=== PATIENT | female | born 1970 | race Caucasian/White ===

== ENCOUNTER 2017-10-01 14:10 | Inpatient (IN) | payer OTHER ==
[2017-10-01 15:38] LABS: ABS Basophils 0.1 10^3/ul (0-0.2); ABS Eosinophils 0.1 10^3/ul (0-0.6); ABS Lymphocytes 0.9 10^3/ul (1.0-4.8); ABS Monocytes 0.7 10^3/ul (0-0.8); ABS Neutrophils 7.5 10^3/ul (1.5-7.7); ABS Nucleated RBC 0 10^3/ul; Eosinophil % 0.8 % (0-6); Hematocrit 41 % (35-47); Hemoglobin 14.1 g/dl (12.0-16.0); Lymphocyte % 9.6 % (25-47); Mean Corpuscular HGB Conc 34 g/dl (31-36); Mean Corpuscular Hemoglobin 31 pg (27-31); Mean Corpuscular Volume 90 fL (80-97); Nucleated Red Blood Cells % 0; Platelet Count 353 10^3/ul (150-450); Red Cell Distribution Width 14 % (10.5-15); White Blood Count 9.2 10^3/ul (3.5-10.8)
[2017-10-01 15:57] LABS: EGFR Non-African American 53.2 (>60)
[2017-10-01] MEDS ORDERED: NS 0.9% 1000 ML* 1,000 ML IV ONE (16:24)
[2017-10-01] MEDS ORDERED: Lidocaine 2% VISCOUS* 15 ML UDC PO ONE (16:24)
[2017-10-01 16:34] LABS: Urine Appearance Cloudy; Urine Blood Negative (Negative); Urine Color Amber; Urine Ketones 2+ (Negative); Urine Protein 2+(100 mg/dL) (Negative); Urine Specific Gravity 1.034 (1.010-1.030); Urine Urobilinogen Positive (Negative)
[2017-10-01] MEDS: Potassium Chloride LIQUID* 20 MEQ PACKET PO ONE ×2 (16:36→17:37)
[2017-10-01] MEDS ORDERED: Magnesium Hydroxide LIQ* 30 ML UDC PO PRN (17:41)
[2017-10-01] MEDS ORDERED: Albuterol 2.5 MG/3 ML NEB.SOL* (0.083%) INH PRN (17:41)
[2017-10-01] MEDS ORDERED: Acetaminophen TAB* 325 MG PO PRN (17:41)
[2017-10-01] MEDS ORDERED: Al Hydrox/Mg Hydrox/Simet LIQ* 30 ML UDC PO PRN (17:41)
[2017-10-01] MEDS ORDERED: NS 0.9% 1000 ML* 1,000 ML IV SCH (17:45)
[2017-10-01] MEDS ORDERED: Lidocaine 2% VISCOUS* 15 ML UDC SWISH SPIT PRN (17:48)
[2017-10-01] MEDS ORDERED: KCL 10 MEQ/50 ML IVPREMIX* 10 MEQ/50 ML BAG ONE (18:34)
[2017-10-01] MEDS: KCL 10 MEQ/50 ML IVPREMIX* 10 MEQ/50 ML BAG IV SCH ×2 (18:38→20:40)
--- NOTE | 2017-10-01 19:22 | HP ---
CC: Dr. Lopez * ADMISSION HISTORY AND PHYSICAL: DATE OF ADMISSION: 10/01/17 PATIENT OF: Hi Mccallum MD * (DICTATED BY REHANA TRENT) PRIMARY DOUGH RAISER: James Lopez MD CHIEF COMPLAINT: 1. Vomiting. 2. History of esophagitis. HISTORY OF PRESENT ILLNESS: Ms. Edwards is a 47-year-old female who carries past medical history significant for multiple sclerosis as well as history of dysphagia and esophagitis in the past who presents to the emergency room today with complaints of increased nausea, vomiting and unable to keep any food down for the past week or so. The patient was evaluated by Dr. Lopez back on 09/22 where she had an EGD revealing esophagitis as well as no evidence of healing ulcers in her upper GI tract. She denies any coffee-ground emesis or raudel bleeding. She does not have any family history of esophageal cancer. She denies any associated abdominal pain or chest pain. She has lost approximately 25 to 30 pounds since the episode because she in general cannot tolerate any food intake. She was also noted to have candidiasis in the esophagus for which she has been on fluconazole for yeast infection. She reports that for the past couple of days she could not even tolerate any fluid down and she keeps vomiting. She denies any fever, chills, or any other associated symptoms. She felt dehydrated and weak for which she came to the emergency room for further evaluation. She had laboratory workup that revealed significant hypokalemia likely secondary to multiple episodes of emesis. Emergency room providers had contacted Dr. Loaiza who is covering for GI practice today, who will come to see the patient tomorrow for a consultation. Given her ongoing symptoms, evidence of dehydration and inability to control her vomiting and cannot keep any food down, we were asked to see the patient for further evaluation and to consider admission for IV fluid hydration awaiting GI consult. PAST MEDICAL HISTORY: Significant for multiple sclerosis, hypertension, and hypothyroidism. PAST SURGICAL HISTORY: None. CURRENT MEDICATIONS: Her medications at home include: 1. Tecfidera 240 mg p.o. daily. 2. Plaquenil 400 mg p.o. q.h.s. 3. Synthroid 75 mcg p.o. daily. 4. Lidocaine viscous solution 15 mL swish and swallow every 12 hours as needed for heartburn. 5. Lisinopril/hydrochlorothiazide 20/25 mg 1 tablet p.o. daily. 6. Multivitamin 1 tablet p.o. daily. 7. Omeprazole 40 mg p.o. daily. 8. Zofran 4 mg p.o. q.8 hours as needed for nausea. 9. Carafate 10 mL p.o. q.a.c. and q.h.s., for which the patient has been on for a week since her last EGD; however, she is not on it at this time. ALLERGIES: She is allergic to PENICILLINS. FAMILY HISTORY: Significant for hypertension. Denies any family history of esophageal cancer or gastric carcinoma. SOCIAL HISTORY: The patient is a nonsmoker who drinks alcohol rarely. 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 She is and her _ the healthcare proxy. REVIEW OF SYSTEMS: See HPI. Otherwise, 14-point review of systems were discussed and were otherwise negative. PHYSICAL EXAMINATION GENERAL: She is a pleasant, morbidly-obese, middle-aged female in no acute distress or discomfort at the time of admission. VITAL SIGNS: Reveal temperature of 97.8, pulse of 65, respirations of 20, O2 sat of 99% on room air, and blood pressure of 131/86. HEENT: Head is normocephalic, atraumatic. Sclerae anicteric. PERRLA. EOMs intact. Oropharynx is pink and dry. NECK: Supple. Trachea midline. No cervical adenopathy or thyromegaly. LUNGS: Clear to auscultation bilaterally. HEART: Regular rate and rhythm. Normal S1 and S2 without rubs, murmurs, or gallops. BACK: With normal curvature and no CVA tenderness. BREASTS: Exam deferred at this time. ABDOMEN: Round, soft, and obese, nontender and nondistended. There are no hernias, masses, or hepatosplenomegaly. There is no guarding, rigidity, or rebound tenderness. EXTREMITIES: Without cyanosis, clubbing, or edema. NEUROLOGIC: She is awake, alert, and oriented x4. Neurologic exam was grossly normal. RECTAL: Exam deferred at this time. LABORATORY WORKUP: Her CBC today with white count of 9000, hemoglobin 14.1, hematocrit of 41, and platelets of 353,000. Chemistry with sodium of 143, potassium 2.8 that is being corrected with 40 mEq in the ED as well as I added two 10 mEq IV runs and we will recheck labs in the morning, chloride is 99, BUN 13, creatinine 1.1. LFTs within normal limits. Lactic acid 1.2. C-reactive protein is 53. ACCESSORY DIAGNOSTIC DATA: ECG done earlier today with no evidence of ST changes noted. IMPRESSION: A 47-year-old female with past medical history significant for multiple sclerosis, hypertension and hypothyroidism, as well as evidence of esophagitis on 2 separate EGDs back in July and most recently 10 days ago, who presents with persistent nausea, vomiting and inability to keep any p.o. intake with signs and symptoms consistent with dehydration. ASSESSMENT AND PLAN: 1. Esophagitis. The patient will be admitted to the medical floor for IV hydration. I will keep her on clear liquid diet for the time being and will reassess in the morning. Dr. Loaiza was contacted by the emergency room staff and he will see the patient for GI consultation in the morning. She appears to be comfortable at this time and we will continue her on clear liquid diet as tolerated. I will also continue her PPI coverage and resume Carafate 4 times daily. She does not have any evidence of coffee-ground emesis or upper GI bleed and appears to be hemodynamically stable. 2. Hypertension. I will continue her lisinopril/hydrochlorothiazide. 3. Hypothyroidism. We will continue her levothyroxine. 4. History of multiple sclerosis. We will continue her medications at home. 5. Hypokalemia. The patient received p.o. and IV run supplementation and we will recheck her electrolytes in the morning. I suspect this is likely secondary to multiple episodes of emesis leading to her electrolyte imbalance. 6. DVT prophylaxis: She is at moderate risk and will use sequential stocking device for the time being. 7. Code status: She is a full code. 8. Disposition: Admit to medical floor for IV hydration, symptomatic management of intractable vomiting and await GI consultation and recommendation. TIME SPENT: Approximately 60 minutes were spent admitting this patient with greater than 50% taking history and performing physical exam. REHANA TRENT [id number]/[facility] #: [id number] GITA
[2017-10-01] MEDS: Sucralfate SUSP 1 GM/10 ml 10 ML UDC PO SCH (20:48)
[2017-10-01] MEDS: Hydroxychloroquine TAB* 200 MG PO SCH (22:43)
[2017-10-02] MEDS: Ondansetron INJ* 2 MG/ML VIAL IV PRN ×2 (03:54→21:00)
[2017-10-02 05:54] LABS: ABS Basophils 0.1 10^3/ul (0-0.2); ABS Eosinophils 0.1 10^3/ul (0-0.6); ABS Lymphocytes 0.7 10^3/ul (1.0-4.8); ABS Monocytes 0.6 10^3/ul (0-0.8); ABS Neutrophils 5.5 10^3/ul (1.5-7.7); ABS Nucleated RBC 0 10^3/ul; Eosinophil % 1.2 % (0-6); Hematocrit 37 % (35-47); Hemoglobin 12.6 g/dl (12.0-16.0); Lymphocyte % 10.4 % (25-47); Mean Corpuscular HGB Conc 34 g/dl (31-36); Mean Corpuscular Hemoglobin 31 pg (27-31); Mean Corpuscular Volume 90 fL (80-97); Mean Platelet Volume 8.8 um3 (7.4-10.4); Nucleated Red Blood Cells % 0; Platelet Count 264 10^3/ul (150-450); Red Blood Count 4.08 10^6/ul (4.00-5.40); Red Cell Distribution Width 15 % (10.5-15); White Blood Count 6.9 10^3/ul (3.5-10.8)
[2017-10-02] MEDS: Sucralfate SUSP 1 GM/10 ml 10 ML UDC PO SCH ×4 (06:08→21:00)
[2017-10-02] MEDS: PROCHLORPERAZINE INJ 5 MG/ML 2 ML VIAL IV PRN ×2 (06:09→23:41)
[2017-10-02] MEDS: Levothyroxine TAB* 75 MCG TAB PO SCH (06:09)
[2017-10-02 06:13] LABS: EGFR Non-African American 67.1 (>60)
--- NOTE | 2017-10-02 07:06 | PN ---
Progress Note - Progress Note Date of Service: 10/02/17 Note: Cross cover note: Called regarding low potassium Vomiting continues 3 runs of 20meq potassium chloride IV ordered
[2017-10-02] MEDS ORDERED: Omeprazole CAP* 20 MG PO SCH (07:30)
[2017-10-02] MEDS: KCL 20 MEQ/100 ML IVPREMIX* 20 MEQ/100 ML BAG IV SCH ×3 (08:13→12:38)
[2017-10-02] MEDS: Lisinopril TAB* 10 MG PO SCH (08:14)
[2017-10-02] MEDS: Potassium Chloride LIQUID* 20 MEQ PACKET PO SCH (08:14)
[2017-10-02] MEDS: Hydrochlorothiazide TAB* 25 MG PO SCH (08:14)
[2017-10-02] MEDS ORDERED: DIMETHYL FUMARATE 240 MG PO SCH (09:00)
[2017-10-02] MEDS ORDERED: NS 0.9% 1000 ML* 1,000 ML IV SCH (10:30)
[2017-10-02] MEDS ORDERED: Fluconazole 100 MG TAB* TAB PO SCH (11:00)
[2017-10-02] MEDS: Pantoprazole IV* 40 MG IV SCH (11:51)
--- NOTE | 2017-10-02 16:30 | PN ---
Subjective Date of Service: 10/02/17 Interval History: Able to tolerate small amount of jello but not much else No pain without swallowing No nausea without eating No other complaints Objective Active Medications: Acetaminophen (Tylenol Tab*) 650 mg PO Q4H PRN PRN Reason: FEVER/PAIN Al Hydrox/Mg Hydrox/Simethicone (Maalox Plus*) 30 ml PO Q6H PRN PRN Reason: INDIGESTION Albuterol (Ventolin 2.5 Mg/3 Ml Neb.Marie*) 2.5 mg INH [id number] AWAKE PRN PRN Reason: sob/wheezing Dimethyl Fumarate (Tecfidera(Nf)) 240 mg PO DAILY [facility] Last Admin: 10/02/17 08:14 Dose: 240 mg Hydrochlorothiazide (Hydrodiuril Tab*) 25 mg PO DAILY [facility] Last Admin: 10/02/17 08:14 Dose: 25 mg Hydroxychloroquine Sulfate (Plaquenil Tab*) 400 mg PO BEDTIME [facility] Last Admin: 10/01/17 22:43 Dose: Not Given Fluconazole/Sodium Chloride (Diflucan 200 Mg Ivpremix(*)) 200 mg in 100 mls @ 100 mls/hr IVPB Q24H [facility] Lactated Ringer's (Lactated Ringers 1000 Ml Bag*) 1,000 mls @ 125 mls/hr IV PER RATE [facility] Stop: 10/03/17 18:59 Last Admin: 10/02/17 11:51 Dose: 125 mls/hr Famotidine 20 mg/ Sodium (Chloride) 102 mls @ 408 mls/hr IVPB BID [facility] Levothyroxine Sodium (Synthroid Tab*) 75 mcg PO QAM@0600 [facility] Last Admin: 10/02/17 06:09 Dose: 75 mcg Lidocaine (Xylocaine 2% Viscous*) 15 ml SWISH SPIT Q12HR PRN PRN Reason: PER PROTOCOL Lisinopril (Prinivil Tab*) 20 mg PO DAILY [facility] Last Admin: 10/02/17 08:14 Dose: 20 mg Magnesium Hydroxide (Milk Of Magnesia Liq*) 30 ml PO Q4H PRN PRN Reason: CONSTIPATION Ondansetron HCl (Zofran Inj*) 4 mg IV Q6H PRN PRN Reason: NAUSEA/VOMITING Last Admin: 10/02/17 03:54 Dose: 4 mg Pantoprazole Sodium (Protonix Iv*) 40 mg IV Q24H [facility] Last Admin: 10/02/17 11:51 Dose: 40 mg Potassium Chloride (Klor-Con Liquid*) 20 meq PO DAILY [facility] Last Admin: 10/02/17 08:14 Dose: 20 meq Prochlorperazine Edisylate (Compazine Inj*) 10 mg IV Q6H PRN PRN Reason: NAUSEA/VOMITING Last Admin: 10/02/17 06:09 Dose: 10 units Sucralfate (Sucralfate Susp) 1 gm PO ACHS [facility] Last Admin: 10/02/17 14:46 Dose: Not Given Vital Signs - 8 hr 10/02/17 11:17 Temperature 97.4 F Pulse Rate 62 Respiratory 19 Rate Blood Pressure 141/75 (mmHg) O2 Sat by Pulse 100 Oximetry Oxygen Devices in Use Now: None Appearance: NAD Eyes: No Scleral Icterus, PERRLA Ears/Nose/Mouth/Throat: NL Teeth, Lips, Gums, Clear Oropharnyx Neck: NL Appearance and Movements; NL JVP, Trachea Midline Respiratory: Symmetrical Chest Expansion and Respiratory Effort, Clear to Auscultation Cardiovascular: NL Sounds; No Murmurs; No JVD, RRR Abdominal: NL Sounds; No Tenderness; No Distention Lymphatic: No Cervical Adenopathy Extremities: No Edema Skin: No Rash or Ulcers Neurological: Alert and Oriented x 3 Result Diagrams: 10/02/17 05:39 10/02/17 05:39 Assess/Plan/Problems-Billing Assessment: 47 yo F pw persistent N/V and refractory erosive esophagitis - Patient Problems (1) Erosive esophagitis Comment: No change on EGD from July to 09/22 Protonix IV Add pepcid IV carafate and viscous lidocaine if tolerated GI consult for further guidance (2) Esophageal candidiasis Comment: positive from culture obtained during 09/22 EGD fluconazole IV (3) Hypokalemia Comment: In setting of N/V IV KCl Lactated ringers Check in AM (4) Multiple sclerosis Comment: tecfidera (5) Hypertension Comment: lisinopril, HCTZ (6) Hypothyroidism Comment: synthroid switch to IV if unable to tolerate in AM (7) DVT prophylaxis Comment: enoxaparin
[2017-10-02] MEDS: Enoxaparin(*) 40 MG/0.4 ML SYR SUBCUT SCH (17:02)
[2017-10-02] MEDS ORDERED: Famotidine IV * 20 MG in NS 0.9% 100 ML* 100 ML IVPB SCH (21:00)
[2017-10-02] MEDS: Hydroxychloroquine TAB* 200 MG PO SCH (21:00)
[2017-10-02] MEDS: Famotidine IV* 10 MG/ML 2 ML (20 mg) IV SCH (21:00)
--- NOTE | 2017-10-02 21:34 | CONS ---
GASTROENTEROLOGY CONSULT: DATE: 10/02/17 CONSULTING PHYSICIAN: Denilson Branch REASON FOR CONSULTATION: Dysphagia progressing with frequent nausea and vomiting and hypokalemia to 2.8 in a woman being treated for erosive esophagitis with narrowing HISTORY OF PRESENT ILLNESS: This 47-year-old woman who works from home in [employer] has never had GI problems prior to this year. She began having trouble with intermittent dysphagia predominantly for solids sometime in late May or early June. She had a barium swallow, 06/27/17, showing some spasm and narrowing of the distal esophagus. Reflux was noted despite narrowing. She was referred for GI consult to Dr Lopez, who did an upper endoscopy, 08/04, that showed severe erosive esophagitis in the distal esophagus with nodularity, swelling and edema. Large ulcers were seen so no dilation done. Biopsies were taken and these showed nonspecific inflammation. There was a small hiatal hernia. The stomach was unremarkable including in retroflexion. The distal stomach and duodenum were normal. She was started on omeprazole 40 mg b.i.d. an increased dose from what Dr Anderson had started Her symptoms, however, got worse in the few weeks prior to repeat endoscopy on 09/22/17. There was a lot of white exudate in the esophagus and the distal esophagus was very narrowed, actually worse than the prior exam. The adult scope would not go through, so pediatric scope was chosen and did go through the EG junction though there was some blood oozing. There was nodular tissue in the gastric cardia. Biopsies were nonspecific. She was placed on antifungal treatment in addition to the PPI. At that time, she was complaining of more pain in the lower substernal area. She was asked to put her omeprazole into applesauce. In the emergency room yesterday, the complaint was of inability to eat, frequent vomiting and weakness. She said she had lost 60-70 lbs. She is afebrile and was found to have a very low potassium. PAST MEDICAL HISTORY: 1. Morbid obesity. 2. Autoimmune disorder - she has had a rash on her face and [place] [address] Shepherd in [place]. The patient thinks the rash fades under the influence of the Plaquenil. She is not aware of any other suspicious area related to rheumatologic disorder. 3. Multiple sclerosis - right leg numbness and some incontinence and she has been on Tecfidera since fall 2013, followed by Dr Delma Wilson in [place] ( [phone]). 4. Hypothyroidism - on levothyroxine. SOCIAL HISTORY: She is and had 3 children; ages 17, 15, and 11. Curiously, she had no GI symptoms during their gestation. She works remotely for a [employer] on [employer]. 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 REVIEW OF SYSTEMS: She is morbidly obese though beyond hypertension, has no metabolic disorder. There is no history of abdominal surgery. There is no history of lung disease, hemoptysis, TB, arthritis. She had a diarrhea workup a year ago with parasite exam of stool in August 2016. She has lost 70 pounds since early May going from 330 to 260. She had a soft bowel movement today , the first in a week stating she had not eaten anything. PHYSICAL EXAM: She is a morbidly obese woman, in no overt distress at this time. Her skin appears normal. She has no adenopathy. Her lungs are clear and heart sounds are regular. Breast and pelvic exam is deferred. The abdomen is symmetric, quite obese with a large panniculus. Bowel sounds are reduced, present. The abdomen is soft with no focal tenderness. Rectal deferred. IMPRESSION: This 47-year-old woman has had the onset of dysphagia over the last 4 months. She really did not give a classic history for acid indigestion or heartburn. There was not any odynophagia until recent weeks. She at this time complains more of just inability to eat and vomiting rather than acid dyspeptic symptoms. She has had severe erosions at endoscopy and has not responded to a double dose of omeprazole. This is quite unusual situation of esophageal inflammation initially presumed to be peptic not responding to a PPI. The description of her distal esophagus sounds erosive and not suggestive of allergy, mass or pemphigus or anything such as that. One wonders about caustic effect if some of her pills do not transmit. A caustic effect could be compounding some other underlying narrowing or stricture or infiltrative process. Tecfidera is large and apparently is not supposed to be broken up. Her neurologist was called and the risk of interrupting the Tecfidera for a couple of weeks would be quite low and was allowed by her neurologist, Dr. Wilson. Another upper endoscopy might shed some light on this and is considered unless she rapidly turns around. The potassium has actually fallen to 2.6 since admission and therefore EGD deferred until tomorrow when it should be rising . [id number]/[facility] #: [id number] MTDCiro
[2017-10-03] MEDS: Levothyroxine TAB* 75 MCG TAB PO SCH (06:03)
[2017-10-03] MEDS: Sucralfate SUSP 1 GM/10 ml 10 ML UDC PO SCH ×3 (06:03→16:28)
[2017-10-03 06:47] LABS: ABS Basophils 0.1 10^3/ul (0-0.2); ABS Eosinophils 0.1 10^3/ul (0-0.6); ABS Lymphocytes 0.8 10^3/ul (1.0-4.8); ABS Monocytes 0.6 10^3/ul (0-0.8); ABS Neutrophils 5.4 10^3/ul (1.5-7.7); ABS Nucleated RBC 0 10^3/ul; Hematocrit 39 % (35-47); Mean Corpuscular HGB Conc 34 g/dl (31-36); Mean Corpuscular Hemoglobin 31 pg (27-31); Mean Corpuscular Volume 90 fL (80-97); Mean Platelet Volume 9.1 um3 (7.4-10.4); Nucleated Red Blood Cells % 0.1; Platelet Count 314 10^3/ul (150-450); Red Blood Count 4.28 10^6/ul (4.00-5.40); Red Cell Distribution Width 15 % (10.5-15)
[2017-10-03 07:10] LABS: EGFR Non-African American 63.1 (>60)
[2017-10-03] MEDS: Lisinopril TAB* 10 MG PO SCH (07:42)
[2017-10-03] MEDS: Hydrochlorothiazide TAB* 25 MG PO SCH (07:42)
[2017-10-03] MEDS: Potassium Chloride LIQUID* 20 MEQ PACKET PO SCH ×2 (07:42→08:00)
[2017-10-03] MEDS: Famotidine IV* 10 MG/ML 2 ML (20 mg) IV SCH ×2 (07:43→21:24)
[2017-10-03] MEDS: KCL 20 MEQ/100 ML IVPREMIX* 20 MEQ/100 ML BAG IV SCH ×3 (07:43→17:52)
[2017-10-03] MEDS: Pantoprazole IV* 40 MG IV SCH (10:56)
[2017-10-03] MEDS: Fluconazole 200 MG IVPREMIX(*) 200 MG/100 ML BAG IVPB SCH (10:56)
--- NOTE | 2017-10-03 11:12 | ED ---
Krish Tellez Tenzin, scribed for Beto Ulloa MD on 10/01/17 at 1602 . Complex/Multi-Sys Presentation - HPI Summary HPI Summary: Pt is a 47 years old female sent to the ED by PMD with complaints of N/V and general malaise for several weeks. Pt notes that her mouth feels dry and she feels very exhausted. She reports that drinking any fluid makes her vomit. She also notes that she has no appetite for weeks and complaints of not able to keep her food down. She reports that her urine color is dark and her throat hurts when she is talking continuously. She denies Fever, Chills, Erythema (eyes ), chest pain, SOB, cough, abd pain, diarrhea, Dysuria, Hematuria, Myalgia, Edema, rash or dizziness. No alleviating factors were noted. Pt reports that she lost 70 Ibs since May 2017. She has moderate to severe ulcer in her esophagus and adds that yeast was found in her esophagus. Pt does not take K meds at home. A week ago, pt reported that endoscopy was done. She does not smoke but drinks occasionally. - History Of Current Complaint Chief Complaint: EDNauseaVomitDiarrh Time Seen by Provider: 10/01/17 14:47 Hx Obtained From: Patient Onset/Duration: Lasting Weeks, Still Present Associated Signs And Symptoms: Positive: Weakness, Nausea, Vomiting. Negative: SOB, Cough, Chest Pain, Diarrhea, Dysuria, Fever - Allergies/Home Medications Allergies/Adverse Reactions: Allergies Allergy/AdvReac Type Severity Reaction Status Date / Time Penicillins Allergy Rash Verified 10/01/17 14:44 Home Medications: Home Medications Hydroxychloroquine TAB* [Plaquenil TAB*] 400 mg PO BEDTIME 10/01/17 [History Confirmed 10/01/17] Lidocaine 2% VISCOUS* [Xylocaine 2% Viscous*] 15 ml SWISH SPIT Q12HR PRN [History Confirmed 10/01/17] Multivitamins/Minerals TAB* [Theragran/minerals TAB*] 1 tab PO DAILY 10/01/17 [ History Confirmed 10/01/17] Omeprazole CAP* [Prilosec CAP* 20 MG] 40 mg PO DAILY 10/01/17 [History Confirmed 10/01/17] Ondansetron TAB* [Zofran 4 MG Tab*] 4 mg PO Q8HR PRN 10/01/17 [History Confirmed 10/01/17] Pantoprazole TAB (NF) [Protonix TAB (NF)] 40 mg PO DAILY 10/01/17 [History Confirmed 10/01/17] Sucralfate SUSP (NF) [Carafate SUSP (NF)] 10 ml PO ACHS 10/01/17 [History Confirmed 10/01/17] PMH/Surg Hx/FS Hx/Imm Hx - Immunization History Immunizations Up to Date: Yes Infectious Disease History: No Infectious Disease History: Denies: Traveled Outside the [place] in Last 30 Days - Social History Alcohol Use: Rare Substance Use Type: Reports: None Smoking Status (MU): Never Smoked Tobacco Review of Systems Negative: Fever, Chills Negative: Erythema Positive: Other - Dry mouth. throat hurts. Negative: Chest Pain Negative: Shortness Of Breath, Cough Positive: Vomiting, Nausea. Negative: Abdominal Pain, Diarrhea Negative: dysuria, hematuria Negative: Myalgia, Edema Negative: Rash All Other Systems Reviewed And Are Negative: Yes Physical Exam - Summary Physical Exam Summary: Constitutional: Well-developed, Well-nourished, Alert. (-) Distressed Skin: Warm, Dry HENT: Normocephalic; Atraumatic, Dry oral Mucosa. Eyes: Conjunctiva normal Neck: Musculoskeletal ROM normal neck. (-) JVD, (-) Stridor, (-) Tracheal deviation Cardio: Rhythm regular, rate normal, Heart sounds normal; Intact distal pulses; The pedal pulses are 2+ and symmetric. Radial pulses are 2+ and symmetric. (-) Murmur Pulmonary/Chest wall: Effort normal. (-) Respiratory distress, (-) Wheezes, (-) Rales Abd: Soft, (-) Tenderness, (-) Distension, (-) Guarding, (-) Rebound Musculoskeletal: (-) Edema Lymph: (-) Cervical adenopathy Neuro: Alert, Oriented x3 Psych: Mood and affect Normal Triage Information Reviewed: Yes Vital Signs On Initial Exam: Initial Vitals Temp Pulse Resp BP Pulse Ox 97.8 F 65 20 131/86 99 10/01/17 14:39 10/01/17 14:39 10/01/17 14:39 10/01/17 14:39 10/01/17 14:39 Vital Signs Reviewed: Yes Diagnostics - Vital Signs Vital Signs Temp Pulse Resp BP Pulse Ox 10/01/17 14:39 97.8 F 65 20 131/86 99 - Laboratory Lab Results: Lab Results 10/01/17 10/01/17 10/01/17 Range/Units 15:22 15:22 15:22 WBC 9.2 (3.5-10.8) 10^3/ul RBC 4.60 (4.00-5.40) 10^6/ul Hgb 14.1 (12.0-16.0) g/dl Hct 41 (35-47) % MCV 90 (80-97) fL MCH 31 (27-31) pg MCHC 34 (31-36) g/dl RDW 14 (10.5-15) % Plt Count 353 (150-450) 10^3/ul MPV 9.0 (7.4-10.4) um3 Neut % (Auto) 81.6 (38-83) % Lymph % (Auto) 9.6 L (25-47) % [place] % (Auto) 7.4 H (0-7) % Eos % (Auto) 0.8 (0-6) % Baso % (Auto) 0.6 (0-2) % Absolute Neuts (auto) 7.5 (1.5-7.7) 10^3/ul Absolute Lymphs (auto) 0.9 L (1.0-4.8) 10^3/ul Absolute Monos (auto) 0.7 (0-0.8) 10^3/ul Absolute Eos (auto) 0.1 (0-0.6) 10^3/ul Absolute Basos (auto) 0.1 (0-0.2) 10^3/ul Absolute Nucleated RBC 0 10^3/ul Nucleated RBC % 0 Sodium 143 (135-145) mmol/L Potassium 2.8 L (3.5-5.0) mmol/L Chloride 99 L (101-111) mmol/L Carbon Dioxide 26 (22-32) mmol/L Anion Gap 18 H (2-11) mmol/L BUN 13 (6-24) mg/dL Creatinine 1.10 H (0.51-0.95) mg/dL Est GFR ( Amer) 64.4 (>60) Est GFR (Non-Af Amer) 53.2 (>60) BUN/Creatinine Ratio 11.8 (8-20) Glucose 88 (70-100) mg/dL Lactic Acid 1.2 (0.5-2.0) mmol/L Calcium 10.1 (8.6-10.3) mg/dL Total Bilirubin 0.70 (0.2-1.0) mg/dL AST 11 L (13-39) U/L ALT 9 (7-52) U/L Alkaline Phosphatase 70 (34-104) U/L C-Reactive Protein 53.18 H (<8.01) mg/L Total Protein 7.8 (6.4-8.9) g/dL Albumin 3.9 (3.2-5.2) g/dL Globulin 3.9 (2-4) g/dL Albumin/Globulin Ratio 1.0 (1-3) Lipase 30 (11.0-82.0) U/L Result Diagrams: 10/03/17 06:24 10/03/17 06:24 Lab Statement: Any lab studies that have been ordered have been reviewed, and results considered in the medical decision making process. - EKG 14:53 Cardiac Rate: Bradycardia - at 55 BPM EKG Interpretation: NON STEMI Complex Multi-Symp Course/Dx Course Of Treatment: Pt is a 47 years old female sent to the ED by PMD with complaints of N/V and general malaise for several weeks. Pt notes that her mouth feels dry and she feels very exhausted. Consulted with Dr. Loaiza and he recommended admission. He also suggested to put the pt on IV fluids and noted about K replacement. UA is obtained. - Diagnoses Provider Diagnoses: Hypokalemia, Esophagitis - Physician Notifications Discussed Care Of Patient With: Raymond Loaiza - He recommended admission of the pt. He also said to give her IV fluids and suggested K replacement. Time Discussed With Above Provider: 16:29 Discharge - Sign-Out/Discharge Documenting (check all that apply): Discharge/Admit/Transfer - Admit. - Discharge Plan Condition: Stable Disposition: ADMITTED TO [facility] - Billing Disposition and Condition Condition: STABLE Disposition: Admitted to [facility] The documentation as recorded by the Krish hussein Tenzin accurately reflects the service I personally performed and the decisions made by , Beto Ulloa MD.
[2017-10-03] MEDS ORDERED: fentaNYL* 50 MCG/ML 2 ML VIAL (100 MCG VIAL) ONE (12:56)
[2017-10-03] MEDS ORDERED: Midazolam* 1 MG/ML 10 ML VIAL (10 MG) ONE (12:56)
[2017-10-03] MEDS ORDERED: KCL 20 MEQ/100 ML IVPREMIX* 40 MEQ/200 ML BAG ONE (17:51)
[2017-10-03] MEDS: Enoxaparin(*) 40 MG/0.4 ML SYR SUBCUT SCH (17:52)
[2017-10-03] MEDS ORDERED: hydrALAZINE IV* 20 MG/ML VIAL IV SLOW PU PRN (18:13)
--- NOTE | 2017-10-03 18:13 | PN ---
Subjective Date of Service: 10/03/17 Interval History: Tolerated procedure well Has had continued difficulty with swallowing and maintaining PO Objective Active Medications: Albuterol (Ventolin 2.5 Mg/3 Ml Neb.Marie*) 2.5 mg INH [id number] AWAKE PRN PRN Reason: sob/wheezing Enoxaparin Sodium (Lovenox(*)) 40 mg SUBCUT Q24H [facility] Last Admin: 10/03/17 17:52 Dose: 40 mg Famotidine (Pepcid Iv*) 20 mg IV BID [facility] Last Admin: 10/03/17 07:43 Dose: 20 mg Hydroxychloroquine Sulfate (Plaquenil Tab*) 400 mg PO BEDTIME [facility] Last Admin: 10/02/17 21:00 Dose: Not Given Fluconazole/Sodium Chloride (Diflucan 200 Mg Ivpremix(*)) 200 mg in 100 mls @ 100 mls/hr IVPB Q24H [facility] Last Admin: 10/03/17 10:56 Dose: 100 mls/hr Lactated Ringer's (Lactated Ringers 1000 Ml Bag*) 1,000 mls @ 125 mls/hr IV PER RATE [facility] Stop: 10/03/17 18:59 Last Admin: 10/02/17 21:33 Dose: 125 mls/hr Levothyroxine Sodium (Synthroid Inj*) 37.5 mcg IV 0600 [facility] Lidocaine (Xylocaine 2% Viscous*) 15 ml SWISH SPIT Q12HR PRN PRN Reason: PER PROTOCOL Magnesium Hydroxide (Milk Of Magnesia Liq*) 30 ml PO Q4H PRN PRN Reason: CONSTIPATION Ondansetron HCl (Zofran Inj*) 4 mg IV Q6H PRN PRN Reason: NAUSEA/VOMITING Last Admin: 10/02/17 21:00 Dose: 4 mg Pantoprazole Sodium (Protonix Iv*) 40 mg IV Q24H [facility] Last Admin: 10/03/17 10:56 Dose: 40 mg Prochlorperazine Edisylate (Compazine Inj*) 10 mg IV Q6H PRN PRN Reason: NAUSEA/VOMITING Last Admin: 10/02/17 23:41 Dose: 10 units Vital Signs - 8 hr 10/03/17 10/03/17 11:16 16:26 Temperature 97.4 F 98.4 F Pulse Rate 70 71 Respiratory 20 16 Rate Blood Pressure 151/78 131/67 (mmHg) O2 Sat by Pulse 100 100 Oximetry Oxygen Devices in Use Now: None Appearance: NAD Eyes: No Scleral Icterus, PERRLA Ears/Nose/Mouth/Throat: NL Teeth, Lips, Gums, Mucous Membranes Moist Neck: NL Appearance and Movements; NL JVP, Trachea Midline Respiratory: Symmetrical Chest Expansion and Respiratory Effort, Clear to Auscultation Cardiovascular: NL Sounds; No Murmurs; No JVD, RRR Abdominal: NL Sounds; No Tenderness; No Distention Lymphatic: No Cervical Adenopathy Extremities: No Edema Skin: No Rash or Ulcers Neurological: Alert and Oriented x 3 Result Diagrams: 10/03/17 06:24 10/03/17 06:24 Additional Lab and Data: Lab Results 10/01/17 10/01/17 10/01/17 Range/Units 15:22 15:22 15:22 WBC 9.2 (3.5-10.8) 10^3/ul RBC 4.60 (4.00-5.40) 10^6/ul Hgb 14.1 (12.0-16.0) g/dl Hct 41 (35-47) % MCV 90 (80-97) fL MCH 31 (27-31) pg MCHC 34 (31-36) g/dl RDW 14 (10.5-15) % Plt Count 353 (150-450) 10^3/ul MPV 9.0 (7.4-10.4) um3 Neut % (Auto) 81.6 (38-83) % Lymph % (Auto) 9.6 L (25-47) % Andrew % (Auto) 7.4 H (0-7) % Eos % (Auto) 0.8 (0-6) % Baso % (Auto) 0.6 (0-2) % Absolute Neuts (auto) 7.5 (1.5-7.7) 10^3/ul Absolute Lymphs (auto) 0.9 L (1.0-4.8) 10^3/ul Absolute Monos (auto) 0.7 (0-0.8) 10^3/ul Absolute Eos (auto) 0.1 (0-0.6) 10^3/ul Absolute Basos (auto) 0.1 (0-0.2) 10^3/ul Absolute Nucleated RBC 0 10^3/ul Nucleated RBC % 0 Sodium 143 (135-145) mmol/L Potassium 2.8 L (3.5-5.0) mmol/L Chloride 99 L (101-111) mmol/L Carbon Dioxide 26 (22-32) mmol/L Anion Gap 18 H (2-11) mmol/L BUN 13 (6-24) mg/dL Creatinine 1.10 H (0.51-0.95) mg/dL Est GFR ( Amer) 64.4 (>60) Est GFR (Non-Af Amer) 53.2 (>60) BUN/Creatinine Ratio 11.8 (8-20) Glucose 88 (70-100) mg/dL Lactic Acid 1.2 (0.5-2.0) mmol/L Calcium 10.1 (8.6-10.3) mg/dL Total Bilirubin 0.70 (0.2-1.0) mg/dL AST 11 L (13-39) U/L ALT 9 (7-52) U/L Alkaline Phosphatase 70 (34-104) U/L C-Reactive Protein 53.18 H (<8.01) mg/L Total Protein 7.8 (6.4-8.9) g/dL Albumin 3.9 (3.2-5.2) g/dL Globulin 3.9 (2-4) g/dL Albumin/Globulin Ratio 1.0 (1-3) Lipase 30 (11.0-82.0) U/L Microbiology and Other Data: Microbiology 10/01/17 16:15 Urine Culture - Final Urine Assess/Plan/Problems-Billing Assessment: 47 yo F pw persistent N/V and refractory erosive esophagitis - Patient Problems (1) Erosive esophagitis Comment: repeat EGD 10/[address] Loaiza. Reported concerning finding which may have been mass. A mass may be contributing to pseudoacalasia. Biopsies taken. Dr. Loaiza to discuss findings with patient and tomorrow at 9am. Protonix IV Add pepcid IV viscous lidocaine if tolerated All solid meds switched to IV holding tecfidera May need PICC and TPN if cannot tolerate liquids. (2) Esophageal candidiasis Comment: positive from culture obtained during 09/22 EGD fluconazole IV (3) Hypokalemia Comment: In setting of N/V IV KCl Lactated ringers Check in AM (4) Multiple sclerosis Comment: tecfidera on hold after discussion with neurologist (5) Hypertension Comment: lisinopril, HCTZ stopped PRN hydralazine IV (6) Hypothyroidism Comment: synthroid IV (7) DVT prophylaxis Comment: enoxaparin
[2017-10-03] MEDS ORDERED: Lidocaine 2% VISCOUS* 15 ML UDC SWISH SPIT PRN (20:06)
[2017-10-03] MEDS: Hydroxychloroquine TAB* 200 MG PO SCH (21:10)
--- NOTE | 2017-10-04 00:35 | PRO ---
DATE: 10/03/17 REFERRING PHYSICIAN: Preethi Anderson DO [place]. PROCEDURE: Upper gastrointestinal endoscopy and biopsy of esophageal stricture at 40 cm with pediatric and adult scopes and biopsy gastric cardia, in retroflexion also with pediatric and adult scopes following balloon dilation EG junction stricture to 12 mm with balloon dilator. INDICATION: This 47-year-old woman has complained of dysphagia and weight loss with recurring vomiting. She presented dehydrated with a potassium of 2.8. Yesterday, she was rehydrated; potassium given and she did not get out of the 2s. Her MS doctor was contacted for guidance about her MS meds. Today, she was given her usual blood pressure pills although Tecfidera was held. She was unable to tolerate anything p.o. even a popsicle. Preprocedure biopsies and dilation of a stricture were mentioned along with possible transfer to a tertiary center if no diagnostic prognosis is made. ENDOSCOPIST: Dr. Loaiza. MEDICATION: Midazolam 15.5, fentanyl 175. FINDINGS: She is a morbidly obese woman, handling her own saliva, but in no other distress. Her lungs are clear. EGD: Larynx - symmetric limited views. Esophagus - easily entered and the mucosa appears normal in the upper and mid esophagus; and then beginning at about 32 to 33, there is some thin adherent material to the wall somewhat granular not typical of monilia. From 35 to 38 there is a fair amount of granular retained material with some appearance of pill or shell casings. This tended the clog the scope, but gradually with water lavage and clearing of the scope, the material was suctioned clear. There was then a firm coalescence of folds down to the EG junction at 39. The adult scope would not pass. As described before, pediatric scope was then chosen and did go through this area and to the gastric fundus. The fundus appeared a little erythematous, but diffusely so without any focality and the body and antrum also appeared normal. Duodenum - the pylorus, bulb, and second through fourth portions appeared normal. Coming back to the gastric fundus with the pediatric scope, washing off the cardia, there appeared to be a stiff granular cardia possibly with a transition to slightly different mucosa from the fundus. The pediatric biopsy forceps took 5 or 6 samples from the stiff cardia. The appearance was abnormal but certainly not definitive. Additional biopsies submitted in jar 2 were taken from the stricture at 39-40 as one pulled through. The adult scope was then reinserted and through the scope balloon threaded easily into the stomach. It was inflated to 10, 11 and 12 mm. There was resistance with the 12 mm size a dilating effect was evident. Still the adult scope did not go through easily; however, with some tip maneuvering and deflection and some slight residual resistance, the scope did enter the stomach. From retroflexed position, more biopsies were obtained from the cardia (which appeared stiff and minimally erythematous and these were submitted in bottle 3. During slow pull through in the EG stricture, biopsies were taken again for jar 4 with the adult forceps. IMPRESSION: 1. 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 2. Induration of the gastric cardia - not specific with biopsies pending. Chest CT and EUS would be helpful 3. Dysphagia - she may need PPN and for the moment she cannot tolerate pills. If she can take clears tomorrow elixors could be considered. ADDENDUM: Preprocedure, the patient knowing she would be partially sedated, had arranged for a telephone conference with her and there will be a 9 a.m. family conference on 10/04/17 to go over results. [id number]/LAURIE #: [id number] GITA
[2017-10-04] MEDS ORDERED: Levothyroxine INJ* 100 MCG/5 ML VIAL IV SCH (06:00)
[2017-10-04 07:09] LABS: Hematocrit 39 % (35-47); Mean Corpuscular HGB Conc 34 g/dl (31-36); Mean Corpuscular Hemoglobin 30 pg (27-31); Mean Corpuscular Volume 90 fL (80-97); Mean Platelet Volume 9.6 um3 (7.4-10.4); Platelet Count 290 10^3/ul (150-450); Red Blood Count 4.29 10^6/ul (4.00-5.40); Red Cell Distribution Width 15 % (10.5-15)
[2017-10-04 07:26] LABS: EGFR Non-African American 74.7 (>60)
[2017-10-04] MEDS: Famotidine IV* 10 MG/ML 2 ML (20 mg) IV SCH (08:11)
[2017-10-04] MEDS: KCL 20 MEQ/100 ML IVPREMIX* 20 MEQ/100 ML BAG IV SCH ×2 (10:05→14:19)
--- NOTE | 2017-10-04 11:05 | PN ---
Subjective Date of Service: 10/04/17 Interval History: Pt is able to swallow small amounts of jello. Esophagus is "sore", denies abd pain Objective Active Medications: Albuterol (Ventolin 2.5 Mg/3 Ml Neb.Marie*) 2.5 mg INH [id number] AWAKE PRN PRN Reason: sob/wheezing Enoxaparin Sodium (Lovenox(*)) 40 mg SUBCUT Q24H [facility] Last Admin: 10/03/17 17:52 Dose: 40 mg Famotidine (Pepcid Iv*) 20 mg IV BID [facility] Last Admin: 10/04/17 08:11 Dose: 20 mg Hydralazine HCl (Apresoline Iv*) 5 mg IV SLOW PU Q6H PRN PRN Reason: SYSTOLIC BP GREATER THAN: Hydroxychloroquine Sulfate (Plaquenil Tab*) 400 mg PO BEDTIME [facility] Last Admin: 10/03/17 21:10 Dose: Not Given Fluconazole/Sodium Chloride (Diflucan 200 Mg Ivpremix(*)) 200 mg in 100 mls @ 100 mls/hr IVPB Q24H [facility] Last Admin: 10/03/17 10:56 Dose: 100 mls/hr Potassium Chloride (Potassium Chloride 20 Meq/100 Ml Ivpremix*) 20 meq in 100 mls @ 50 mls/hr IV Q2H [facility] Stop: 10/04/17 12:59 Last Admin: 10/04/17 10:05 Dose: 50 mls/hr Levothyroxine Sodium (Synthroid Inj*) 37.5 mcg IV 0600 [facility] Last Admin: 10/04/17 05:27 Dose: 37.5 mcg Lidocaine (Xylocaine 2% Viscous*) 15 ml SWISH SPIT Q6H PRN PRN Reason: PER PROTOCOL Last Admin: 10/03/17 20:19 Dose: 15 ml Magnesium Hydroxide (Milk Of Magnesia Liq*) 30 ml PO Q4H PRN PRN Reason: CONSTIPATION Ondansetron HCl (Zofran Inj*) 4 mg IV Q6H PRN PRN Reason: NAUSEA/VOMITING Last Admin: 10/02/17 21:00 Dose: 4 mg Pantoprazole Sodium (Protonix Iv*) 40 mg IV Q24H [facility] Last Admin: 10/03/17 10:56 Dose: 40 mg Prochlorperazine Edisylate (Compazine Inj*) 10 mg IV Q6H PRN PRN Reason: NAUSEA/VOMITING Last Admin: 10/02/17 23:41 Dose: 10 units Vital Signs - 8 hr 10/04/17 10/04/17 10/04/17 03:35 03:40 07:21 Temperature 97.3 F Pulse Rate 66 73 80 Respiratory 18 18 22 Rate Blood Pressure 139/83 156/98 (mmHg) O2 Sat by Pulse 100 100 100 Oximetry Oxygen Devices in Use Now: None Appearance: 47 yo F in nAD, AAOx3 Eyes: No Scleral Icterus, PERRLA Ears/Nose/Mouth/Throat: NL Teeth, Lips, Gums, Mucous Membranes Moist Neck: NL Appearance and Movements; NL JVP, Trachea Midline Respiratory: Symmetrical Chest Expansion and Respiratory Effort, Clear to Auscultation Cardiovascular: NL Sounds; No Murmurs; No JVD, RRR, No Edema Abdominal: NL Sounds; No Tenderness; No Distention, No Hepatosplenomegaly Lymphatic: No Cervical Adenopathy Extremities: No Edema, No Clubbing, Cyanosis Skin: No Rash or Ulcers, No Nodules or Sclerosis Neurological: Alert and Oriented x 3, NL Muscle Strength and Tone Result Diagrams: 10/04/17 06:25 10/04/17 06:25 Additional Lab and Data: Lab Results 10/01/17 10/01/17 10/01/17 Range/Units 15:22 15:22 15:22 WBC 9.2 (3.5-10.8) 10^3/ul RBC 4.60 (4.00-5.40) 10^6/ul Hgb 14.1 (12.0-16.0) g/dl Hct 41 (35-47) % MCV 90 (80-97) fL MCH 31 (27-31) pg MCHC 34 (31-36) g/dl RDW 14 (10.5-15) % Plt Count 353 (150-450) 10^3/ul MPV 9.0 (7.4-10.4) um3 Neut % (Auto) 81.6 (38-83) % Lymph % (Auto) 9.6 L (25-47) % Alfalfa % (Auto) 7.4 H (0-7) % Eos % (Auto) 0.8 (0-6) % Baso % (Auto) 0.6 (0-2) % Absolute Neuts (auto) 7.5 (1.5-7.7) 10^3/ul Absolute Lymphs (auto) 0.9 L (1.0-4.8) 10^3/ul Absolute Monos (auto) 0.7 (0-0.8) 10^3/ul Absolute Eos (auto) 0.1 (0-0.6) 10^3/ul Absolute Basos (auto) 0.1 (0-0.2) 10^3/ul Absolute Nucleated RBC 0 10^3/ul Nucleated RBC % 0 Sodium 143 (135-145) mmol/L Potassium 2.8 L (3.5-5.0) mmol/L Chloride 99 L (101-111) mmol/L Carbon Dioxide 26 (22-32) mmol/L Anion Gap 18 H (2-11) mmol/L BUN 13 (6-24) mg/dL Creatinine 1.10 H (0.51-0.95) mg/dL Est GFR ( Amer) 64.4 (>60) Est GFR (Non-Af Amer) 53.2 (>60) BUN/Creatinine Ratio 11.8 (8-20) Glucose 88 (70-100) mg/dL Lactic Acid 1.2 (0.5-2.0) mmol/L Calcium 10.1 (8.6-10.3) mg/dL Total Bilirubin 0.70 (0.2-1.0) mg/dL AST 11 L (13-39) U/L ALT 9 (7-52) U/L Alkaline Phosphatase 70 (34-104) U/L C-Reactive Protein 53.18 H (<8.01) mg/L Total Protein 7.8 (6.4-8.9) g/dL Albumin 3.9 (3.2-5.2) g/dL Globulin 3.9 (2-4) g/dL Albumin/Globulin Ratio 1.0 (1-3) Lipase 30 (11.0-82.0) U/L Microbiology and Other Data: Microbiology 10/01/17 16:15 Urine Culture - Final Urine Assess/Plan/Problems-Billing Assessment: 47 yo F pw persistent N/V and refractory erosive esophagitis - Patient Problems (1) Erosive esophagitis Comment: repeat EGD 10/[address] Loaiza. Reported concerning finding which may have been mass. A mass may be contributing to pseudoachalasia. Biopsies taken. Dr. Loaiza recommmned transfer to [place] fo further eval with EGD ultrasound, and evaluation for possible esophageal stent Protonix IV and pepcid IV cont viscous lidocaine if tolerated holding tecfidera cont liquid diet-tolerating small amounts (2) Esophageal candidiasis Comment: positive from culture obtained during 09/22 EGD fluconazole IV (3) Hypertension Comment: lisinopril, HCTZ stopped PRN hydralazine IV (4) Hypokalemia Comment: In setting of N/V IV KCl Check in AM (5) Hypothyroidism Comment: synthroid IV (6) Multiple sclerosis Comment: tecfidera on hold after discussion with neurologist (7) DVT prophylaxis Comment: enoxaparin
[2017-10-04] MEDS: Fluconazole 200 MG IVPREMIX(*) 200 MG/100 ML BAG IVPB SCH (12:28)
[2017-10-04] MEDS: Pantoprazole IV* 40 MG IV SCH (12:29)
[2017-10-04 15:31] VITALS: BP 157/91
[2017-10-04] MEDS: Enoxaparin(*) 40 MG/0.4 ML SYR SUBCUT SCH (16:55)
--- NOTE | 2017-10-04 17:33 | TRS ---
CC: Dr. Lopez; Dr. Loaiza; Dr. Cochran, [facility] Hospitalist Department; Dr. Preethi Anderson; Dr. Sharp, Gastroenterology from [facility] * TRANSFER SUMMARY: DATE OF ADMISSION: 10/01/17 DATE OF DISCHARGE AND TRANSFER: 10/04/17 - To [facility] from our facility. PRIMARY CARE PROVIDER: Dr. Preethi Anderson. REASON FOR TRANSFER TO [facility]: Further management and evaluation for possibility of esophageal mass causing stricture/pseudoachalasia. SECONDARY DIAGNOSES: 1. History of multiple sclerosis causing bilateral lower extremity numbness. 2. History of hypertension. 3. History of hypothyroidism. 4. History of unidentified autoimmune disorder. The patient stated that she had a rash on her face and was [place] [address] Mcfarland in [place]. CURRENT MEDICATIONS: Include: 1. Fluconazole 200 mg IV every 24 hours. 2. Albuterol inhaler 1 inhalation every 4 hours p.r.n. 3. Pepcid 20 mg IV b.i.d. 4. Lovenox 40 mg subcutaneously every 24 hours. 5. Hydralazine 5 mg IV on a p.r.n. basis for high blood pressure. 6. Plaquenil 400 mg at bedtime. 7. Viscous lidocaine 15 mL swish and spit p.r.n. 8. Levothyroxine 37.5 mcg IV every 24 hours. 9. Zofran on a p.r.n. basis. 10. Protonix 40 mg IV every 24 hours. 11. Compazine 10 mg every 6 hours p.r.n. CONSULTATIONS DURING THE HOSPITAL STAY: Included Dr. Loaiza from Gastroenterology who performed an upper endoscopy on 10/03/17 with the procedure report noting "Impression: Esophagogastric junction stricture dilated to 12 mm, though still tied with the diagnostic scope due to irregularity of the lumen. Induration of the gastric cardia. Nonspecific with biopsies pending. Chest CT and endoscopic ultrasound will be helpful. Dysphagia. She will need TPN and for the moment she cannot tolerate pills, but she can clears tomorrow. Elixir should be considered." Pathology from the gastric mucosa biopsies are pending at the time of dictation. HOSPITALIZATION COURSE: Teodora Edwards is a 47-year-old female with history of obesity as well as multiple sclerosis as well as autoimmune disorder causing rash, on Plaquenil chronically, who presented to the hospital complaining of inability to swallow. She has had problems with esophagitis dating back to 3 months ago. On 08/04/17, she had the first endoscopy. She had another endoscopy on 09/22/17. During that time, she was diagnosed with ulcerative esophagitis as well as active Sugey infection, for which she was placed on Diflucan. Diflucan was switched to IV once the patient was admitted with inability to swallow. The last upper endoscopy was performed by Dr. Loaiza just yesterday on 10/03/17. During the endoscopy, she was noted to have stricture and maybe pseudoachalasia due to possibly obstructing from the outside mass. At that time, Dr. Loaiza recommended for the patient to be transferred to a tertiary care center for an evaluation by cardiothoracic surgeon. The case was discussed with Dr. Cochran, a hospitalist from [facility], as well as Dr. Sharp from the gastroenterology department at [facility] as well as cardiothoracic surgeon at [facility]. Discussion was whether the patient should be transferred to the facility or may be even discharged home and seek treatment in another facility since both [facility] as well as [facility] did not have beds available. At this point, the patient felt not comfortable to be going home. She just started to be able to tolerate clears by the time of transfer. At this point, she is going to be transferred to [facility] for further evaluation and treatment. Please also note that the patient's pathology report will be likely available on 10/07/17. For physical exam at the time of transfer and further details of the patient's hospitalization, please see daily progress notes. Please also note that the patient has history of chronic multiple sclerosis for which as outpatient she uses Tecfidera. That was stopped when the patient was unable to take p.o. at admission and the patient's neurologist from [facility] is aware of the patient's medication being held at this point. Please note that this is a short summary of the patient's hospitalization. Please refer to further medical records for details. TIME SPENT: Approximately 1 hour and 60 minutes were spent on the patient's transfer. [id number]/[facility] #: [id number] MTDD
== END 2017-10-04 18:00 | disposition short-term general hospital (02) | DRG 381 ==
LOC: ED 14:10 → MED 17:41
PROVIDERS: ADMIT Internal Medicine; ATTEND Internal Medicine
PROC: 0DB48ZX Excision of Esophagogastric Junction, Via Natural or Artificial Opening Endoscopic, Diagnostic (ICD-10-PCS; principal; 2017-10-03)
PROC: 0DB68ZX Excision of Stomach, Via Natural or Artificial Opening Endoscopic, Diagnostic (ICD-10-PCS; 2017-10-03)
PROC: 0D748ZZ Dilation of Esophagogastric Junction, Via Natural or Artificial Opening Endoscopic (ICD-10-PCS; 2017-10-03)
DX: K22.10 Ulcer of esophagus without bleeding (principal); B37.81 Candidal esophagitis; Z68.41 Body mass index [BMI] 40.0-44.9, adult; K22.2 Esophageal obstruction; K22.0 Achalasia of cardia; K22.9 Disease of esophagus, unspecified; E87.6 Hypokalemia; G35 Multiple sclerosis; I10 Essential (primary) hypertension; E03.9 Hypothyroidism, unspecified; E66.01 Morbid (severe) obesity due to excess calories; E86.0 Dehydration; Z88.0 Allergy status to penicillin; Z82.49 Family history of ischemic heart disease and other diseases of the circulatory system; Z79.01 Long term (current) use of anticoagulants
CPT/HCPCS: 36415; 80048; 80053; 81003; 81015; 82378; 83605; 83615; 83690; 85025; 85027; 86140; 87086; 88305; 88360; 93005; 99156; 99157; 99284; A9270-GY; J0780; J1450; J1650; J2250; J2405; J3010; J3480